=== PATIENT | male | born 1990 | race Caucasian/White ===

== ENCOUNTER 2016-06-20 22:16 | Emergency (ER) | payer MEDICAID, OTHER ==
[~2016-06-20] VITALS: Ht 172.7 cm; Wt 70.0 kg
[2016-06-20 22:17] VITALS: BP 130/69; PULSE 112; RESP 16; TEMP 98.4; O2SAT 97
[2016-06-20 22:45] VITALS: BP 130/69; PULSE 112; RESP 16; O2SAT 97
--- NOTE | 2016-06-21 01:33 | PD ---
HPI Chief Complaint: Psychiatric Symptoms Time Seen by Provider: 01:30 Travel History International Travel<30 days: No Contact w/Intl Traveler<30days: No Traveled to known affect area: No History of Present Illness HPI 26-year-old white male presents to emergency department on a voluntary basis for psychological evaluation. He states that he has auditory and visual hallucinations. He states that he has a history of anxiety in the past. He has treated his mental illness with marijuana on a daily basis. He states that he also takes Xanax on occasion when his anxiety becomes more intense. He denies any other substance abuse according to the patient. He does drink approximately 2 beers a day. He does smoke. He denies any active medical complaints. He states that he has no job, no insurance and does not know where to go to get his mental health evaluation and treatment. He denies any suicidal or homicidal ideation. He states that he lives here in [facility] with his girlfriend. PFSH Past Medical History ADHD: No Asthma: No Autoimmune Disease: No Blood Disorders: No Bipolar Disorder: Yes Anxiety: Yes Depression: No Heart Rhythm Problems: No Cancer: No Cardiovascular Problems: No Chest Pain: No Cystic Fibrosis: No Diabetes: No Diminished Hearing: No Genitourinary: No Headaches: No Hypertension: No Musculoskeletal: No Neurologic: No Psychiatric: No Respiratory: No Migraines: No Seizures: Yes (EPISODE WHEN OVERDOSE ON ACID) Sickle Cell Disease: No Sleep Apnea: No Thyroid Disease: No Ulcer: No Tetanus Vaccination: < 5 Years Past Surgical History Surgical History: No Previous Surgery Abdominal Surgery: No Appendectomy: No Cardiac Surgery: No Cholecystectomy: No Ear Surgery: No Endocrine Surgery: No Eye Surgery: No Genitourinary Surgery: No Gynecologic Surgery: No Neurologic Surgery: No Oral Surgery: No Thoracic Surgery: No Social History Alcohol Use: Yes Tobacco Use: Yes Substance Use: Yes (hx of MARIJUANA) Allergies-Medications (Allergen,Severity, Reaction): Coded Allergies: Haldol (Verified Adverse Reaction, Severe, seizure, 10/27/14) Reported Meds & Prescriptions Reported Meds & Active Scripts Active No Active Prescriptions or Reported Medications Review of Systems Except as stated in HPI: all other systems reviewed are Neg Psychiatric: Positive: Anxiety, Disorder of Thought, Mood Disorder, Substance Abuse, No: Depression, Suicidal Ideations, Homicidal Ideation Physical Exam Narrative GENERAL: Well-nourished, well-developed patient. SKIN: Warm and dry. HEAD: Normocephalic and atraumatic. EYES: No scleral icterus. No injection or drainage. ENT: No nasal drainage noted. Mucous membranes pink. Airway patent. NECK: Supple, trachea midline. Moves head freely without obvious discomfort. CARDIOVASCULAR: Regular rate and rhythm without murmurs, gallops, or rubs. RESPIRATORY: Breath sounds equal bilaterally. No accessory muscle use. GASTROINTESTINAL: Abdomen soft, non-tender, nondistended. EXTREMITIES: No cyanosis or edema. BACK: Nontender without obvious deformity. No CVA tenderness. NEURO: Patient is alert and oriented. no sensorimotor deficits. Nonfocal. Normal speech. PSYCH: No delusions. Patient claims that he is having both auditory or visual hallucinations. Data Data Last Documented VS Vital Signs Date Time Temp Pulse Resp B/P Pulse Ox O2 Delivery O2 Flow Rate FiO2 06/20/16 22:45 112 16 130/69 97 06/20/16 22:17 98.4 Room Air Orders Psych Screen (06/21/16 01:12) Quetiapine (Seroquel) (06/21/16 01:45) MDM Medical Decision Making Medical Screen Exam Complete: Yes Emergency Medical Condition: Yes Medical Record Reviewed: Yes Differential Diagnosis MDM: High Differential diagnoses: Schizophrenia, schizoaffective disorder, bipolar, anxiety, depression, adjustment reaction, mood disorder NOS, ODD, depressive disorder NOS, dementia, dementia with agitation, psychosis NOS, substance induced mood disorder, intermittent explosive disorder, Asperger syndrome, infection,electrolyte abnormality, malingering. Narrative Course Mental health screening discussed with the patient. Psychiatric screen ordered. The patient is been medically cleared. The patient has requested something for sleep. He is given Seroquel 100 mg by mouth. The patient states that this is something that he's taken before in the past and worked for him. This is substance induced mood disorder Diagnosis Primary Impression: Substance induced mood disorder Patient Instructions: General Instructions Scripts No Active Prescriptions or Reported Meds Condition: Stable Keny Costello Jun 21, 2016 01:33
[2016-06-21] MEDS ORDERED: QUEtiapine FUMARATE 100 MG TAB PO ONE (01:45)
[2016-06-21 02:00] LABS: AMPHETAMINE, URINE NEG (NEG); BARBITURATES, URINE NEG (NEG); COCAINE, URINE NEG (NEG)
[2016-06-21 02:10] VITALS: BP 131/59; PULSE 81; RESP 18; O2SAT 99
[2016-06-21 06:00] VITALS: BP 120/58; PULSE 71; RESP 16; O2SAT 100
--- NOTE | 2016-06-21 10:42 | PD ---
History of Present Illness Chief Complaint: Psychiatric Symptoms Time Seen by Provider: 10:18 Travel History International Travel<30 Days: No Contact w/Intl Traveler<30days: No Known affected area: No Legal Status Legal Status: Voluntary History of Present Illness: History of Present Illness 26-year-old white male with history of substance use disorder who presents to emergency department on a voluntary basis for psychological evaluation. As per ED documentation he reported auditory and visual hallucinations, anxiety. He states that he has no job, no insurance and does not know where to go to get his mental health evaluation and treatment. Patient was monitored in [facility] with no significant behavioral concerns except for this morning when he was demanding " to be seen HEIDY so that I can get out of here". As per medical record review this patient last presented to ED in 2012 complaining of anxiety and requesting refill on Klonopin. He has 2 admissions in 2005 for substance induced mood disorder as well as overdose on LSD with psychosis. Patient is alert and oriented. There is no indication of any hallucinations, no delusions and no paranoia. No suicidal or homicidal ideation. His symptoms are vague. " I checked myself in for evaluation of symptoms that have been going on for 11 years". He cannot produce a recent stressor that may have prompted his ed visit but again speaks in vague generalities. " Irrational reality requiring self medications with marijuana, benzodiazepenes". He admits to taking 2 mg of Xanax every 2-3 days. Patient also reports he uses " other chemicals ". I guess I am the quintessential bipolar manic depressive person. I have social anxiety disorder as well. But I have tried neurochemicals inhibitors". Appears to be fabricating symptoms as we speak but nothing in specific. PFSH Past Medical History ADHD: No Asthma: No Autoimmune Disease: No Blood Disorders: No Bipolar Disorder: Yes Anxiety: Yes Depression: No Heart Rhythm Problems: No Cancer: No Cardiovascular Problems: No Chest Pain: No Cystic Fibrosis: No Diabetes: No Diminished Hearing: No Genitourinary: No Headaches: No Hypertension: No Musculoskeletal: No Neurologic: No Psychiatric: No Respiratory: No Migraines: No Seizures: Yes (EPISODE WHEN OVERDOSE ON ACID) Sickle Cell Disease: No Sleep Apnea: No Thyroid Disease: No Ulcer: No Tetanus Vaccination: < 5 Years Past Surgical History Surgical History: No Previous Surgery Abdominal Surgery: No Appendectomy: No Cardiac Surgery: No Cholecystectomy: No Ear Surgery: No Endocrine Surgery: No Eye Surgery: No Genitourinary Surgery: No Gynecologic Surgery: No Neurologic Surgery: No Oral Surgery: No Thoracic Surgery: No Psychiatric History Psychiatric History Hx Psychiatric Treatment: Hx of substance induced mood disorder and psychosis Has not been ion tx since 2012 History of Inpatient Treatment: Yes Guns or firearms in home: No Social History Single male. possibly homeless at this time. Unemployed. Hx Alcohol Use: Yes Hx Tobacco Use: Yes Hx Substance Use: Yes (HX OF MARIJUANA, MUSHROOMS, LSD) Substance Use Type: Marijuana, Benzos (Valium,Xanax) (positive toxicology for cannabinoids and benzos.), LSD-M[place]cal[place] Hx of Substance Use Treatment: No Family Psychiatric History none reported Allergies-Medications (Allergen,Severity, Reaction): Coded Allergies: Haldol (Verified Adverse Reaction, Severe, seizure, 10/27/14) Reported Meds & Prescriptions Reported Meds & Active Scripts Active No Active Prescriptions or Reported Medications Review of Systems Except as stated in HPI: all other systems reviewed are Neg Psychiatric: COMPLAINS OF: Anxiety, Mood changes Exam Alert: Yes [place]: Person (ox4) Mood: Anxious Affect: Euthymic Speech: Clear, Fast Eye Contact: Normal Memory Intact: Comment (no impairment) Delusions: No Suicidal: Ideation (none) Homicidal: Ideation (none) Insight/Judgement poor. poor MDM Medical Decision Making Medical Record Reviewed: Yes Assessment/Plan 26 year old male with hx of substance use disorder who presents on a voluntary basis requesting a psychiatric evaluation for very nonspecific symptomatology. No psychosis and no ronel. Patient with no suicidal or homicidal ideation. There is a strong suspicion that he is attempting to manufacture symptoms in order to obtain either narcotics or care home. He will be referred to [facility] for outpatient care. Orders Psych Screen (06/21/16 01:12) Quetiapine (Seroquel) (06/21/16 01:45) Drug Screen, Random Urine (06/21/16 01:39) Diet Regular Basic (06/21/16 Breakfast) Results Vital Signs Date Time Temp Pulse Resp B/P Pulse Ox O2 Delivery O2 Flow Rate FiO2 06/21/16 06:00 71 16 120/58 100 Room Air 06/21/16 02:10 81 18 131/59 99 Room Air 06/20/16 22:45 112 16 130/69 97 06/20/16 22:17 98.4 112 16 130/69 97 Room Air Laboratory Tests Test 06/21/16 01:20 Urine Opiates Screen NEG Urine Barbiturates Screen NEG Urine Amphetamines Screen NEG Urine Benzodiazepines Screen POS Urine Cocaine Screen NEG Urine Cannabinoids Screen POS Diagnosis Primary Impression: Substance induced mood disorder Psychiatrically Cleared: Yes Patient Instructions: General Instructions Med/ Other Pt Specific Info: No Meds Exist/No RX given Prescriptions No Active Prescriptions or Reported Meds Disposition: DISCHARGE HOME Condition: Stable Tenisha Jennings Jun 21, 2016 10:42
== END 2016-06-21 11:27 | disposition home or self-care (01) ==
LOC: NEPJ 22:16
DX: F19.94 Other psychoactive substance use, unspecified with psychoactive substance-induced mood disorder (principal)
CPT/HCPCS: 80307; 99282

== ENCOUNTER 2016-08-15 02:30 | Emergency (ER) | payer OTHER ==
[2016-08-15] MEDS ORDERED: LORazepam 2 MG/ML VIAL ONE (02:35)
[2016-08-15] MEDS ORDERED: HALOPERIDOL LACTATE 5 MG/ML AMP ONE (02:35)
[2016-08-15] MEDS ORDERED: ZIPRASIDONE MESYLATE 20 MG VIAL IM ONE ×2 (02:37→03:00)
[2016-08-15] MEDS ORDERED: LORA-392 PO (02:39)
[2016-08-15] MEDS ORDERED: LORazepam 2 MG/ML VIAL IM ONE (03:00)
[2016-08-15] MEDS ORDERED: SODIUM CHLOR 0.9% 1000 ML INJ 1,000 ML IV ONE (03:00)
[2016-08-15 03:15] VITALS: BP 136/82; PULSE 95; RESP 19; O2SAT 100
[2016-08-15 04:00] LABS: CKMB 3.2 NG/ML (0.5-3.6)
--- NOTE | 2016-08-15 04:05 | PD ---
HPI Chief Complaint: Psychiatric Symptoms Time Seen by Provider: 02:55 Travel History International Travel<30 days: No Contact w/Intl Traveler<30days: No Traveled to known affect area: No History of Present Illness HPI Patient is a 26-year-old male brought in by police for medical clearance. He has a small laceration to his forehead and blood on his hands. Per police he was resisting arrest. He says he was drinking beer tonight. He says he has pain all over. He denies any loss of consciousness. PFSH Past Medical History Bipolar Disorder: Yes Anxiety: Yes Diminished Hearing: No Seizures: Yes (EPISODE WHEN OVERDOSE ON ACID) Past Surgical History Surgical History: Unable to Obtain Social History Alcohol Use: Yes (UNOBTAINABLE) Tobacco Use: Yes (UNOBTAINABLE) Substance Use: Yes (HX OF MARIJUANA, MUSHROOMS, LSD) Allergies-Medications (Allergen,Severity, Reaction): Coded Allergies: Haldol (Verified Adverse Reaction, Severe, seizure, 08/15/16) Reported Meds & Prescriptions Reported Meds & Active Scripts Active Reported Ativan (Lorazepam) 0.5 Mg Tab 2 Mg PO BID PRN Review of Systems Eyes: No: Blurred Vision HENT: No: Lightheadedness Cardiovascular: No: Chest Pain or Discomfort Respiratory: No: Shortness of Breath Gastrointestinal: No: Nausea, Vomiting Musculoskeletal: Positive: Pain Skin: Positive Other (laceration), No Change in Pigmentation Neurologic: No: Weakness, Dizziness Physical Exam Narrative GENERAL: Patient is agitated, aggressive, fighting police and staff. SKIN: 1 cm superficial laceration to left side of the forehead, no active bleeding. HEAD: Atraumatic. Normocephalic. EYES: Pupils equal and round. No scleral icterus. Extraocular movements intact. NECK: Trachea midline. No JVD. No cervical spine tenderness. CARDIOVASCULAR: Regular rate and rhythm. No murmur appreciated. RESPIRATORY: No accessory muscle use. Clear to auscultation. Breath sounds equal bilaterally. GASTROINTESTINAL: Abdomen soft, non-tender, nondistended. MUSCULOSKELETAL: No obvious deformities. No clubbing. No cyanosis. No edema. NEUROLOGICAL: Awake and alert, very agitated. No obvious cranial nerve deficits. Motor grossly within normal limits. Normal speech. PSYCHIATRIC: Screaming and yelling, cursing staff Data Data Last Documented VS Vital Signs Date Time Temp Pulse Resp B/P Pulse Ox O2 Delivery O2 Flow Rate FiO2 08/15/16 06:13 76 18 98 08/15/16 03:15 136/82 Room Air Orders Lorazepam Inj (Ativan Inj) (08/15/16 02:35) Haloperidol Inj (Haldol Inj) (08/15/16 02:35) Ziprasidone Inj (Geodon Inj) (08/15/16 02:37) Creatine Kinase (Cpk) (08/15/16 02:55) Ziprasidone Inj (Geodon Inj) (08/15/16 03:00) Lorazepam Inj (Ativan Inj) (08/15/16 03:00) Sodium Chlor 0.9% 1000 Ml Inj (Ns 1000 M (08/15/16 03:00) CKMB (08/15/16 03:15) CKMB% (08/15/16 03:15) Urinalysis - C+S If Indicated (08/15/16 03:45) Labs Laboratory Tests Test 08/15/16 08/15/16 03:15 04:00 Total Creatine Kinase 578 U/L Creatine Kinase MB 3.2 NG/ML Creatine Kinase MB % 0.6 % Urine Color COLORLESS Urine Turbidity CLEAR Urine pH 5.5 Urine Specific [place] 1.002 Urine Protein NEG mg/dL Urine Glucose (UA) NEG mg/dL Urine Ketones NEG mg/dL Urine Occult Blood NEG Urine Nitrite NEG Urine Bilirubin NEG Urine Urobilinogen LESS THAN 2.0 MG/DL Urine Leukocyte Esterase NEG Urine WBC 1 /hpf Microscopic Urinalysis Comment CULT NOT INDICATED MDM Medical Decision Making Medical Screen Exam Complete: Yes Emergency Medical Condition: Yes Medical Record Reviewed: Yes Differential Diagnosis Laceration versus psychosis versus intoxication Narrative Course Patient is a 26-year-old male brought in pulse in place custody for medical clearance. Exam shows a very superficial abrasion to the left forehead, no other abnormalities. Patient was very agitated, fighting staff and against his handcuffs. CK sent to check for any rhabdo. Total CK was 578. Patient given IV fluids. Patient given Ativan as well as Geodon due to his agitation. He then fell asleep and was observed in the ED without any further incident. Discharged back to police custody. Diagnosis Primary Impression: Abrasion Patient Instructions: Abrasion (ED), General Instructions Additional Instructions: Follow up with your doctors. Return to the ED as needed for any worsening symptoms. Disposition: 01 DISCHARGE HOME Condition: Stable Laura Hurley MD Aug 15, 2016 04:05
[2016-08-15 04:15] LABS: BLOOD, URINE NEG (NEG); GLUCOSE,URINE NEG (NEG); KETONE, URINE NEG (NEG); NITRITE,URINE NEG (NEG); PH, URINE 5.5 (5.0-8.5); URINE COLOR COLORLESS (YELLW/STRAW)
[2016-08-15 04:16] LABS: COMMENT (UR) CULT NOT INDICATED; CULTURE IF INDICATED CULT NOT INDICATED
== END 2016-08-15 06:34 | disposition home or self-care (01) ==
LOC: NEPE 02:30
DX: S00.81XA Abrasion of other part of head, initial encounter (principal); Y35.893A Legal intervention involving other specified means, suspect injured, initial encounter; R45.1 Restlessness and agitation
CPT/HCPCS: 81001; 82550; 82552; 96360; 99283; J1630; J7030; J2060; J3486